=== PATIENT | female | born 1990 ===

== ENCOUNTER 2017-03-06 02:47 | Inpatient (IN) | payer OTHER ==
[~2017-03-06] VITALS: Ht 167.6 cm; Wt 98.9 kg
[2017-03-06] MEDS ORDERED: Oxytocin 10 Unit/mL Inj IM PRN ×2 (03:35→07:25)
[2017-03-06] MEDS ORDERED: Oxytocin 30 Units/500 mL LR 30 UNITS in IV Premix 1 EACH IV PRN ×2 (03:35→07:25)
[2017-03-06] MEDS ORDERED: Sodium Chloride LOK Flush 10 mL Syringe IVFLUSH PRN (03:35)
[2017-03-06] MEDS ORDERED: Ondansetron 2 mg/mL 2 mL Inj IVPUSH PRN (03:35)
[2017-03-06] MEDS ORDERED: Carboprost 250 mCg/mL Inj IM PRN ×2 (03:35→07:25)
[2017-03-06] MEDS ORDERED: Hemorrhage Kit, Post Partum XX ONE ×2 (03:35→07:25)
[2017-03-06] MEDS ORDERED: Methylergonovine 0.2 mg/mL Inj IM PRN ×2 (03:35→07:25)
[2017-03-06 03:48] LABS: Mean Corpuscular Hemoglobin 25.8 pg (27.0-35.0); Mean Corpuscular Volume 79.3 fL (81-100)
[2017-03-06] MEDS: Lactated Ringer's 1,000 ML IV PRN ×2 (04:01→04:48)
[2017-03-06] MEDS ORDERED: fentaNYL 2 mCg/mL-Bupivicaine 0.125% 100 mL Premix EPIDURAL ONE ×2 (04:27→04:30)
--- NOTE | 2017-03-06 05:06 | HP ---
[address] [address] HISTORY AND PHYSICAL PATIENT: CHARMAINE BEAL : 1990 MR#: [id number] ADMIT: 03/06/2017 JOB ID: [id number] DATE: 03/06/2017 [facility] NOTE: The patient is a 26-year-old, G 2, P 1, AB 0, woman, followed prenatally at [facility], see record for details. Due date is March 02, 2017, based on conception dating and confirmed with early ultrasound. Note that patient has previously had a vaginal delivery at term. The patient was found on level two sonogram to have absent nasal bone plus echogenic ventricular focus, subsequent amniocentesis normal XX. The patient has gone into labor and believe that she has been leaking some fluid although ROM Plus test was negative. She was initially at 5 cm dilatation. She was thus admitted to [facility] early this morning, anticipating vaginal . She has requested epidural. PHYSICAL EXAMINATION: Last height, weight and blood pressure 6/6 inches, 206 pounds and 110/68 in the office. Neck: No thyromegaly. Lungs are clear to auscultation and percussion. Heart: Regular in rate and rhythm. Abdomen: Last fundal height 41 cm. In the office positive heartbeat, vertex presentation. Note estimated weight on recent ultrasound consistent with full term status. Pelvic examination: Initial cervical exam at 5 cm dilatation reportedly, 90% effaced, -1 station. DIAGNOSTIC DATA: Admission hemoglobin 11.1 with platelets 250. IMPRESSION: 1. A 40 and 4/7 weeks . 2. Active labor. 3. Negative group B strep, Rhesus factor positive, rubella immune. 4. Normal XX, determined via amniocentesis in the setting of level two sonogram-demonstrated absent nasal bone plus echogenic ventricular focus. 5. Increased weight. 6. Asthma, typically activity induced, very uncommon albuterol inhaler use. 7. Received tetanus, diphtheria and pertussis (Tdap) vaccination early in although recommended late in . 8. Reproductive history: a. First --40 and 4/7 week vaginal delivery, 8 pounds 6 ounce baby, epidural, [place] induced, [place]. b. Second --current. 9. "Laughing gas" intolerance, cough. 10. Family history of hypertension (father, other family members), Alzheimer's, breast cancer and skin cancer. PLAN: The patient has been admitted to [facility] on March 06, 2017 in labor, anticipating vaginal , a second child. She has requested epidural anesthesia which has been provided.
[2017-03-06] MEDS ORDERED: Lactated Ringer's 1,000 ML IV SCH (07:22)
[2017-03-06] MEDS ORDERED: Measles-Mumps-Rubella Vaccine 0.5 mL Inj SUBQ ONE (07:25)
[2017-03-06] MEDS ORDERED: LANOlin HPA 7 Gm Ointment TOPICAL PRN (07:25)
[2017-03-06] MEDS ORDERED: Influenza (Adult) Vaccine 0.5 mL Syringe IM ONE (07:25)
[2017-03-06] MEDS ORDERED: Ampicillin-Sulbactam Inj 3,000 MG in 0.9% Sodium Chloride 100 ML IV ONE (07:25)
[2017-03-06] MEDS ORDERED: HYDROcodone-APAP 5-325 mg Tablet PO PRN (07:25)
[2017-03-06] MEDS ORDERED: Witch Hazel-Glycerin Pads TOPICAL PRN (07:25)
[2017-03-06] MEDS ORDERED: TdaP Vaccine 0.5 mL Inj IM ONE (07:25)
[2017-03-06] MEDS ORDERED: Benzocaine (Dermoplast) 20% 60 Gm Spray TOPICAL PRN (07:25)
--- NOTE | 2017-03-06 08:18 | PROG NOTE ---
[address] [address] PROGRESS NOTE PATIENT: CHARMAINE BEAL : 1990 MR#: [id number] ADMIT: 03/06/2017 JOB ID: [id number] [facility]: DATE: 03/06/2017 This patient is admitted [facility] early this morning in labor at term. She had also leaked water at home and initially nurse reported that ROM Plus test was negative, yet then it became positive. The patient received epidural and then labor continued and ultimately complete cervical dilatation was reached. heart tracing was acceptable. Once completely dilated, patient learned to push very well and head steadily descended over a short period time to point. Head then delivered across intact perineum and double nuchal cord was identified and clamped and cut as it could not be easily reduced over the head or shoulder. Shoulders, body, and extremities then delivered. The baby was active and crying and vigorous. Cord blood was obtained for routine studies. Placenta then delivered in a few minutes, appearing to be intact although membranes were only slowly . Ultimately, membranes released as we simply waited with Pitocin infusion ongoing. I then used curette/Travon's curette to gently pass over the uterine lining and a couple small membrane strips were obtained as well as a very small (quarter-sized), section of placental type tissue. Further gentle curettage demonstrated no additional tissue or membranes and finger curettage also demonstrated no tissue or membranes. The uterus had blood a little more than usual, blood loss 400 cc, during the placental delivery process. Once all membranes had been removed, the bleeding was minimal and uterus was staying firm. Note that the cervix protruded from the introitus consistent with immediate prolapse, anticipate will move more cephalad as uterus becomes less heavy over time. Betadine solution was used to cleanse the vulvovaginal region. There was a perineal abrasion yet no lacerations and no stitches were required. Uterus was remaining firm and bleeding minimally. Instrument, needle, and sponge counts were all found to be correct. It certainly is anticipated that mother and baby will do very well during the timeframe. Note that blood count will be followed up on over time, in light of a bit increased bleeding compared to usual. Also, a single intravenous antibiotic dose (Unasyn 3 g) was ordered simply as prophylaxis in the setting of intrauterine manipulation following delivery, see procedures above.
[2017-03-07 07:16] LABS: Mean Corpuscular Hemoglobin 26.2 pg (27.0-35.0); Mean Corpuscular Volume 81.4 fL (81-100)
--- NOTE | 2017-03-07 13:56 | PCM.DIOB ---
Obstetrical Disch Instruction Dates of Hospitalization Date of Hospital Admission Mar 06, 2017 at 03:20 Providers Admitting Physician: Real Rouse MD Primary Care Physician: Real Rouse MD Attending Physician: Real Rouse MD Discharge Diagnosis Problems: (1) Status: Acute ICD Code: Z33.1 Diet Discharge Diet: No restrictions Activity Discharge Activity-General: Pelvic Rest for 6 weeks Dressing and Incisional Care Hygiene: May shower, Perineal care, Sitz bath, Dermoplast spray, Witch Nargis pads, Ice Follow Up Plan Follow-up appointment: Weeks (Follow up in 6 weeks for check up.) Call your provider for: Fever or Chills, Shortness of breath, Heavy vaginal bleeding, Red painful breasts Real Rouse MD Mar 07, 2017 13:55
[2017-03-07] MEDS ORDERED: DOCU-41 PO (13:57)
[2017-03-07] MEDS ORDERED: IBUP-1827 PO (13:57)
[2017-03-07 14:24] VITALS: BP 132/75; PULSE 82; RESP 18
--- NOTE | 2017-03-07 19:59 | DIS ---
[address] [address] DISCHARGE SUMMARY PATIENT: CHARMAINE BEAL : 1990 MR#: [id number] ADMIT: 03/06/2017 JOB ID: [id number] DIS: 03/07/2017 DISCHARGE DIAGNOSIS: Term , delivered. PROCEDURES PERFORMED DURING HOSPITALIZATION: 1. Epidural anesthesia. 2. Vaginal delivery. 3. curettage. HOSPITAL COURSE: Patient admitted to [facility] on March 06, 2017 in labor, ultimately undergoing procedures as described above. During the timeframe, the patient did well, stable vitals, afebrile, with reasonable bleeding, ambulating and voiding, without leg pain or shortness of breath, and handling baby well. hemoglobin was acceptable. Patient was interested in discharge on the first day, and her request was granted. DISCHARGE PROGRAM: Patient will call p.r.n., yet otherwise will follow up at six weeks for checkup. She will observe pelvic rest for six weeks. DISCHARGE MEDICATIONS: Include ibuprofen 800 mg and Colace 100 mg. Prescriptions written. She will also use vitamins daily while nursing.
== END 2017-03-07 14:55 | disposition home or self-care (01) | DRG 774 ==
LOC: FBCO 02:47 → FBC 03:20
PROVIDERS: ADMIT Obstetrics & Gynecology; ATTEND Obstetrics & Gynecology
PROC: 10E0XZZ Delivery of Products of Conception, External Approach (ICD-10-PCS; principal; 2017-03-06)
PROC: 10J1XZZ Inspection of Products of Conception, Retained, External Approach (ICD-10-PCS; 2017-03-06)
DX: O73.1 Retained portions of placenta and membranes, without hemorrhage (principal); O69.1XX0 Labor and delivery complicated by cord around neck, with compression, not applicable or unspecified; Z3A.40 40 weeks gestation of pregnancy; Z37.0 Single live birth